=== PATIENT | male | born 1970 | race Caucasian/White ===

== ENCOUNTER → 2017-01-20 | Outpatient (CLI) | payer BC ==
--- NOTE | 2017-01-20 14:59 | MRI ---
EXAM DESCRIPTION: Lumbar Spine w/o Contrast CLINICAL HISTORY: RADICULOPATHY right lower extremity radicular symptoms COMPARISON: None. TECHNIQUE: Multiplanar, multisequence MRI of the lumbar spine was performed without contrast. FINDINGS: GENERAL Lumbar vertebral bodies show normal height without compression deformity. There is mild curvature of the mid lumbar spine with convexity towards the right centered at the L2-3 level. Conus medullaris terminates at T12-L1 and is unremarkable. Visualized intra-abdominal retroperitoneal structures. L1-2 No significant findings. L2-3 No significant findings. L3-4 No significant findings. L4-5 No significant findings. L5-S1 There is desiccation of the disc space and mild loss of disc space height with 2 or 3 mm retrolisthesis of L5 on S1. No pars defect is seen. There is a focal right lateral recess disc extrusion that measures approximately 11 mm AP by 12 mm transverse by 14 mm craniocaudal extending posterior to the superior plate of S1 indenting the ventral aspect of the thecal sac contacting and displacing the descending right S1 nerve root lateral recess. There is mild spinal canal stenosis. No significant foraminal encroachment on the exiting L5 nerve root is seen. There is increased T2 signal in this disc extrusion compared to the adjacent. IMPRESSION: Mild disc disease at L5-S1 is seen with trace retrolisthesis of L5 on S1. Right lateral recess focal disc extrusion at L5-S1 encroaches on the descending right S1 nerve root in the lateral recess. Electronically signed by: Ac Wilkins MD 01/20/2017 2:57 PM CDT
== END | disposition home or self-care (01) ==
LOC: MRI 14:01
PROVIDERS: ATTEND Family Medicine
DX: M54.16 Radiculopathy, lumbar region (principal)

== ENCOUNTER → 2017-05-08 | Outpatient (CLI) | payer BC | END | disposition home or self-care (01) | LOC: GMAL 11:04 | PROVIDERS: ATTEND Family Medicine | DX: Z00.00 Encounter for general adult medical examination without abnormal findings (principal) ==

== ENCOUNTER → 2020-02-10 | Outpatient (CLI) | payer BC ==
--- NOTE | 2020-02-11 13:13 | MRI ---
EXAM DESCRIPTION: Cervical Spine: MRI. CLINICAL HISTORY: 49 years Male CERVICAL DISC DISORDER WITH RADICULOPATHY CERVICAL REGION COMPARISON: MRI scan cervical spine without contrast September 2014. TECHNIQUE: Multiplanar, high-field MRI, multiple sequences, non-contrast Cervical spine. FINDINGS: Since the prior study, ACDF has been revised and is now at levels C3-C6. Almost complete ossification of the C3-C4 disc space. Minimal artifact with normal marrow signal around the screws. Minimal posterior midline bone bulge but not touching the cord. Bilateral foramina are patent with mild canal narrowing. C4-C5: Almost complete ossification of the disc space but less than the disc space above. Posterior minimal bone bulge in the disc space narrowing the epidural space. No canal or foraminal stenosis. Artifact from the screws that no abnormal bone signal. Fixation hardware in the posterior right lamina with artifact but no abnormal signal. C5-C6: Almost complete opacification of the disc space. Artifact around the anterior screws with no abnormal bone signal. Posterior disc space margin is unremarkable. Minimal narrowing of the right neuroforamen with left neuroforamen patent. No cord impingement or canal stenosis. Fixation device in the right lamina with artifact and no complication seen. C6-C7: Minimal disc desiccation with minimal posterior disc space loss and posterior disc bulge. Bilateral uncinate spurs and disc bulge with bilateral neural foraminal narrowing but no stenosis. Posterior disc not touching the cord and no canal stenosis. Normal signal in the C2-C3 disc, C7-T1 disc, and T1-T2 disc with no bulging. Disc spaces preserved. Canal and neural foramina are patent. Facet joints are unremarkable. Spinal alignment decreased lordosis in the upper segments. No cord compression or cord edema. Atlantoaxial joint minimal arthrosis.. Base of the cerebellar tonsils is above the foramen magnum. Paravertebral soft tissues negative.. Vertebral bodies are not compressed at any level. Otherwise normal marrow signal in the remaining vertebral bodies and the posterior elements. IMPRESSION: 1. ACDF revision since the prior study now at levels C3-C6 with no complications. Disc spaces are almost totally ossified. No canal or neural foraminal stenosis. 2. Disc desiccation bulging C6-C7 with canal and bilateral neural foraminal narrowing but no stenosis. This has progressed since the prior study. 3. Please refer to FINDINGS for discussion of results at other levels. Electronically signed by: Hebert Saravia MD 02/11/2020 1:11 PM CDT
== END ==
LOC: MRI 10:07
PROVIDERS: ATTEND Family Medicine
DX: M50.123 Cervical disc disorder at C6-C7 level with radiculopathy (principal); Z98.1 Arthrodesis status